=== PATIENT | female | born 1945 | race Caucasian/White ===

== ENCOUNTER 2023-07-21 11:38 | Inpatient (IN) | payer OTHER ==
[2023-07-21] MEDS ORDERED: ACETAMINOPHEN INJECTION 100 ML IVPB ONE (13:29)
[2023-07-21 13:56] LABS: BASO % 0.7 % (0-2.0); EOS % 2.1 % (0-4.5); HEMATOCRIT 29.1 % (32.4-45.2); HEMOGLOBIN 9.2 GM/dL (10.7-15.3); LYMPH % 10.1 % (8-40); MCH 28.2 pg (25.7-33.7); MCHC 31.6 g/dl (32.0-36.0); MEAN CELL VOLUME 89.4 fl (80-96); MONO % 3.1 % (3.8-10.2); PLATELET COUNT 408 10^3/uL (134-434); RBC 3.26 M/mm3 (3.60-5.2); RDW 14.8 % (11.6-15.6); WHITE BLOOD COUNT 12.5 K/mm3 (4.0-10.0)
[2023-07-21] MEDS: ACETAMINOPHEN 1000 MG/100 ML BAG IVPB ONE (14:03)
[2023-07-21 14:17] LABS: POTASSIUM 3.6 mmol/L (3.5-5.1)
[2023-07-21 14:20] LABS: BLOOD UREA NITROGEN 54.5 mg/dL (7-18); CALCIUM 9.7 mg/dL (8.5-10.1); MAGNESIUM 1.7 mg/dL (1.8-2.4)
[2023-07-21 14:22] LABS: CREATININE 4.9 mg/dL (0.55-1.3)
[2023-07-21 14:24] LABS: BILIRUBIN,TOTAL 0.3 mg/dL (0.2-1); TOT PROT 7.2 g/dl (6.4-8.2)
[2023-07-21] MEDS ORDERED: ASPIRIN 81 MG CHEWABLE TABLETS ONE (15:15)
[2023-07-21] MEDS: ASPIRIN 81 MG CHEWABLE TABLETS PO ONE (16:45)
[2023-07-21 17:22] LABS: EPI CELLS 4 /uL (0-25.1); HYALINE CASTS 1 /uL (0-3.1); URINE APPEARANCE CLEAR; URINE BACTERIA 3571 /uL (0-1359); URINE BILIRUBIN NEGATIVE (NEGATIVE); URINE COLOR YELLOW; URINE GLUCOSE (UA) 1+ (NEGATIVE); URINE KETONE NEGATIVE (NEGATIVE); URINE LEUK ESTERASE 3+ (NEGATIVE); URINE NITRITE NEGATIVE (NEGATIVE); URINE PROTEIN 2+ (NEGATIVE); URINE RBC 11 /uL (0-23.9); URINE UROBILINOGEN 0.2 mg/dL (0.2-1.0); URINE WBC 271 /uL (0-25.8)
[2023-07-21] MEDS ORDERED: NIFEdipine E.R. 30 MG TABLET PO ONE (17:45)
[2023-07-21] MEDS ORDERED: MAGNESIUM 1GM/D5W - 1 GM/100 ML IVPB IVPB ONE (17:45)
[2023-07-21] MEDS: NIFEdipine E.R. 30 MG TABLET PO SCH (18:10)
[2023-07-21] MEDS: MAGNESIUM SULF 50% (8.12 MEQ/2 ML-1 GM VIAL) IVPB ONE (18:10)
[2023-07-21] MEDS: INSULIN ASPART SLIDING SCALE (NOVOLOG) 1 VIAL SQ SCH (18:11)
[2023-07-21] MEDS ORDERED: CEFTRIAXONE 1 GM/50 ML BAG ONE (18:17)
[2023-07-21] MEDS: CEFTRIAXONE 1 GM in DEXTROSE 5%-WATER - 50 ML IVPB ONE (19:28)
[2023-07-21] MEDS ORDERED: SACUBITRIL/VALSARTAN 24 MG-26 MG TABLET ONE (21:37)
[2023-07-21] MEDS ORDERED: ATORVASTATIN CA 80 MG TABLET (FP) ONE (21:37)
[2023-07-21] MEDS ORDERED: CARVEDILOL 25 MG TABLET (FP) ONE (21:37)
[2023-07-21] MEDS ORDERED: HEPARIN NA (PORCINE) 5,000 UNITS/ML 1ML VIAL ONE (21:37)
[2023-07-21] MEDS: HEPARIN NA (PORCINE) 5,000 UNITS/ML 1ML VIAL SQ SCH (21:54)
[2023-07-21] MEDS: ATORVASTATIN CA 80 MG TABLET (FP) PO SCH (21:54)
[2023-07-21] MEDS: CARVEDILOL 25 MG TABLET (FP) PO SCH (21:54)
[2023-07-21] MEDS: SACUBITRIL/VALSARTAN 24 MG-26 MG TABLET PO SCH (21:54)
[2023-07-21] MEDS: TORSEMIDE 20 MG TABLET (FP) PO SCH (22:34)
[2023-07-21] MEDS: CALCIUM ACETATE 667 MG CAPSULE (FP) PO SCH (23:15)
[2023-07-22] MEDS ORDERED: SODIUM CHLORIDE 250 ML IV PRN (07:11)
[2023-07-22 07:12] LABS: BASO % 0.7 % (0-2.0); EOS % 5.3 % (0-4.5); HEMOGLOBIN 7.7 GM/dL (10.7-15.3); LYMPH % 11.5 % (8-40); MCH 28.5 pg (25.7-33.7); MEAN CELL VOLUME 89.1 fl (80-96); MEAN PLT VOLUME 8.1 fl (7.5-11.1); MONO % 4.6 % (3.8-10.2); NEUT % 77.9 % (42.8-82.8); PLATELET COUNT 351 10^3/uL (134-434); WHITE BLOOD COUNT 10.7 K/mm3 (4.0-10.0)
[2023-07-22 07:20] LABS: POTASSIUM 3.7 mmol/L (3.5-5.1)
[2023-07-22 07:23] LABS: BLOOD UREA NITROGEN 56.6 mg/dL (7-18); CALCIUM 8.7 mg/dL (8.5-10.1)
[2023-07-22 07:25] LABS: CREATININE 4.5 mg/dL (0.55-1.3)
[2023-07-22] MEDS: TORSEMIDE 20 MG TABLET (FP) PO SCH (07:31)
[2023-07-22] MEDS: CALCIUM ACETATE 667 MG CAPSULE (FP) PO SCH (07:31)
[2023-07-22] MEDS: ASPIRIN COATED 81 MG TABLET.EC PO SCH (09:06)
[2023-07-22] MEDS: HEPARIN NA (PORCINE) 5,000 UNITS/ML 1ML VIAL IVPUSH ONE (11:48)
[2023-07-22] MEDS: EPOETIN ALFA-EPBX 10,000 UNIT/ML VIAL SQ ONE (11:49)
[2023-07-22] MEDS ORDERED: CEFTRIAXONE 1 GM/50 ML BAG ONE (15:02)
[2023-07-22] MEDS: HEPARIN NA (PORCINE) 5,000 UNITS/ML 1ML VIAL SQ SCH (15:18)
[2023-07-22] MEDS: CEFTRIAXONE 1 GM in DEXTROSE 5%-WATER - 50 ML IVPB SCH (15:18)
[2023-07-22] MEDS: EPOETIN ALFA-EPBX 4,000 UNIT/ML VIAL SQ ONE (19:27)
[2023-07-22] MEDS ORDERED: traMADol HCL 50 MG TABLET ONE (20:51)
[2023-07-22] MEDS ORDERED: CARVEDILOL 25 MG TABLET (FP) ONE (20:56)
[2023-07-22] MEDS ORDERED: HEPARIN NA (PORCINE) 5,000 UNITS/ML 1ML VIAL ONE (20:56)
[2023-07-22] MEDS ORDERED: SACUBITRIL/VALSARTAN 24 MG-26 MG TABLET ONE (20:56)
[2023-07-22] MEDS ORDERED: ATORVASTATIN CA 80 MG TABLET (FP) ONE (20:56)
[2023-07-22] MEDS: traMADol HCL 50 MG TABLET PO PRN (21:15)
[2023-07-23 08:31] LABS: BASO % 0.6 % (0-2.0); EOS % 6.2 % (0-4.5); HEMATOCRIT 22.8 % (32.4-45.2); HEMOGLOBIN 7.2 GM/dL (10.7-15.3); LYMPH % 19.1 % (8-40); MCH 28.4 pg (25.7-33.7); MCHC 31.6 g/dl (32.0-36.0); MEAN CELL VOLUME 89.6 fl (80-96); MEAN PLT VOLUME 8.1 fl (7.5-11.1); MONO % 5.7 % (3.8-10.2); NEUT % 68.4 % (42.8-82.8); PLATELET COUNT 310 10^3/uL (134-434); RBC 2.55 M/mm3 (3.60-5.2); RDW 15.4 % (11.6-15.6); WHITE BLOOD COUNT 10.1 K/mm3 (4.0-10.0)
[2023-07-23 08:48] LABS: POTASSIUM 3.8 mmol/L (3.5-5.1)
[2023-07-23 08:53] LABS: BLOOD UREA NITROGEN 42.2 mg/dL (7-18); CALCIUM 8.9 mg/dL (8.5-10.1); MAGNESIUM 2.3 mg/dL (1.8-2.4)
[2023-07-23 08:56] LABS: CREATININE 3.4 mg/dL (0.55-1.3); PHOSPHOROUS 2.4 mg/dL (2.5-4.9)
[2023-07-23 08:58] LABS: BILIRUBIN,TOTAL 0.3 mg/dL (0.2-1); TOT PROT 6.1 g/dl (6.4-8.2)
[2023-07-23] MEDS: FLU VACCINE (FLULAVAL) PF 60 MCG/0.5 ML SYRINGE 2023-2024 IM ONE (12:12)
[2023-07-24] MEDS: EPOETIN ALFA-EPBX 10,000 UNIT/ML VIAL SQ ONE (17:29)
[2023-07-24 17:57] LABS: HEMATOCRIT 21.7 % (32.4-45.2); MCH 28.5 pg (25.7-33.7); MCHC 31.9 g/dl (32.0-36.0); MEAN CELL VOLUME 89.3 fl (80-96); MEAN PLT VOLUME 8.2 fl (7.5-11.1); PLATELET COUNT 323 10^3/uL (134-434); RBC 2.43 M/mm3 (3.60-5.2); RDW 15.5 % (11.6-15.6)
[2023-07-24 18:01] LABS: HEMOGLOBIN 6.9 GM/dL (10.7-15.3)
[2023-07-24 18:25] LABS: POTASSIUM 4.1 mmol/L (3.5-5.1)
[2023-07-24 18:27] LABS: ALBUMIN 2.8 g/dl (3.4-5.0); CALCIUM 8.7 mg/dL (8.5-10.1)
[2023-07-24 18:28] LABS: BLOOD UREA NITROGEN 47.2 mg/dL (7-18)
[2023-07-24 18:31] LABS: CREATININE 3.6 mg/dL (0.55-1.3)
[2023-07-24 18:32] LABS: BILIRUBIN,TOTAL 0.2 mg/dL (0.2-1); TOT PROT 6.1 g/dl (6.4-8.2)
[2023-07-24] MEDS ORDERED: SODIUM CHLORIDE 250 ML IV PRN (19:00)
[2023-07-25 06:47] LABS: BASO % 0.4 % (0-2.0); EOS % 5.4 % (0-4.5); HEMATOCRIT 25.7 % (32.4-45.2); HEMOGLOBIN 8.6 GM/dL (10.7-15.3); LYMPH % 19.6 % (8-40); MCH 29.3 pg (25.7-33.7); MCHC 33.6 g/dl (32.0-36.0); MEAN CELL VOLUME 87.1 fl (80-96); MEAN PLT VOLUME 7.8 fl (7.5-11.1); MONO % 6.1 % (3.8-10.2); NEUT % 68.5 % (42.8-82.8); PLATELET COUNT 296 10^3/uL (134-434); RBC 2.95 M/mm3 (3.60-5.2); RDW 15.1 % (11.6-15.6); WHITE BLOOD COUNT 10.1 K/mm3 (4.0-10.0)
[2023-07-25 07:05] LABS: POTASSIUM 3.9 mmol/L (3.5-5.1)
[2023-07-25 07:17] LABS: ALBUMIN 2.9 g/dl (3.4-5.0)
[2023-07-25 07:19] LABS: CREATININE 2.1 mg/dL (0.55-1.3)
[2023-07-25 07:21] LABS: BILIRUBIN,TOTAL 0.3 mg/dL (0.2-1); TOT PROT 6.3 g/dl (6.4-8.2)
[2023-07-25 07:32] LABS: BLOOD UREA NITROGEN 21.4 mg/dL (7-18)
[2023-07-25] MEDS: POLYETHYLENE GLYCOL (HEALTHYLAX) 3350 17 GM PACKET PO SCH (15:08)
[2023-07-25] MEDS: SENNOSIDES/DOCUSATE COMBO (SENNA PLUS) TABLET (UD) PO SCH (21:31)
[2023-07-26] MEDS ORDERED: REGADENOSON 0.4 MG/5 ML PRE-FILLED SYRINGE IVPUSH ONE (11:38)
[2023-07-26] MEDS: REGADENOSON 0.4 MG/5 ML PRE-FILLED SYRINGE IVPUSH ONE (13:15)
[2023-07-26] MEDS ORDERED: SODIUM CHLORIDE 250 ML IV PRN (14:12)
[2023-07-26 14:13] LABS: HEMATOCRIT 26.7 % (32.4-45.2); HEMOGLOBIN 8.6 GM/dL (10.7-15.3); MCH 28.3 pg (25.7-33.7); MCHC 32.2 g/dl (32.0-36.0); PLATELET COUNT 320 10^3/uL (134-434); RBC 3.04 M/mm3 (3.60-5.2); RDW 15.8 % (11.6-15.6); WHITE BLOOD COUNT 9.7 K/mm3 (4.0-10.0)
[2023-07-26 14:37] LABS: POTASSIUM 3.6 mmol/L (3.5-5.1)
[2023-07-26 14:38] LABS: ALBUMIN 2.8 g/dl (3.4-5.0); CALCIUM 8.5 mg/dL (8.5-10.1)
[2023-07-26 14:43] LABS: BILIRUBIN,TOTAL 0.2 mg/dL (0.2-1)
[2023-07-26] MEDS: EPOETIN ALFA-EPBX 10,000 UNIT/ML VIAL SQ ONE (15:28)
[2023-07-26] MEDS: BISACODYL 10 MG SUPP.RECT PR PRN (17:50)
[2023-07-28] MEDS ORDERED: SODIUM CHLORIDE 250 ML IV PRN (21:49)
[2023-07-28] MEDS: traMADol HCL 50 MG TABLET PO ONE (22:05)
[2023-07-29 07:44] LABS: BASO % 0.3 % (0-2.0); EOS % 7.2 % (0-4.5); HEMATOCRIT 25.3 % (32.4-45.2); HEMOGLOBIN 8.3 GM/dL (10.7-15.3); LYMPH % 28.4 % (8-40); MCH 28.7 pg (25.7-33.7); MCHC 32.6 g/dl (32.0-36.0); MEAN CELL VOLUME 88.1 fl (80-96); MONO % 6.4 % (3.8-10.2); NEUT % 57.7 % (42.8-82.8); PLATELET COUNT 329 10^3/uL (134-434); RBC 2.88 M/mm3 (3.60-5.2); RDW 15.2 % (11.6-15.6); WHITE BLOOD COUNT 9.3 K/mm3 (4.0-10.0)
[2023-07-29 08:00] LABS: POTASSIUM 4.2 mmol/L (3.5-5.1)
[2023-07-29 08:12] LABS: BLOOD UREA NITROGEN 46.2 mg/dL (7-18); CALCIUM 8.8 mg/dL (8.5-10.1)
[2023-07-29] MEDS ORDERED: ACETAMINOPHEN 325 MG TABLET (FP) PO PRN (08:13)
[2023-07-29 08:16] LABS: CREATININE 3.4 mg/dL (0.55-1.3)
[2023-07-29] MEDS ORDERED: INSULIN (NOVOLOG) ASPART 100 UNITS/ML 10ML VIAL ONE ×2 (11:02→16:38)
[2023-07-29] MEDS: traMADol HCL 50 MG TABLET PO PRN (23:17)
[2023-07-30 08:43] LABS: CALCIUM 9.5 mg/dL (8.5-10.1)
[2023-07-30 08:44] LABS: BLOOD UREA NITROGEN 24.5 mg/dL (7-18); MAGNESIUM 1.9 mg/dL (1.8-2.4)
[2023-07-30 08:47] LABS: CREATININE 2.1 mg/dL (0.55-1.3); PHOSPHOROUS 1.9 mg/dL (2.5-4.9)
[2023-07-30 08:48] LABS: BILIRUBIN,TOTAL 0.4 mg/dL (0.2-1); TOT PROT 6.6 g/dl (6.4-8.2)
[2023-07-30] MEDS: VITAMIN B COMP W-C 1 EA TABLET (NEPHRO-VITE) PO SCH (09:39)
[2023-07-30] MEDS ORDERED: INSULIN (NOVOLOG) ASPART 100 UNITS/ML 10ML VIAL ONE (11:11)
[2023-07-30] MEDS: NAPH,MB-DB/K PH,MBDB POWDER PACKET PO ONE (17:52)
[2023-07-30] MEDS: PNEUMOC 20-VAL CONJ-DIP CRM/PF 0.5 ML SYRINGE IM ONE (20:15)
[2023-07-31] MEDS ORDERED: INSULIN (NOVOLOG) ASPART 100 UNITS/ML 10ML VIAL ONE (11:39)
[2023-07-31] MEDS ORDERED: SODIUM CHLORIDE 250 ML IV PRN (16:11)
[2023-07-31] MEDS: EPOETIN ALFA-EPBX 10,000 UNIT/ML VIAL IVPUSH ONE (17:13)
[2023-07-31 17:52] LABS: HEMATOCRIT 25.7 % (32.4-45.2); HEMOGLOBIN 8.3 GM/dL (10.7-15.3); MCH 28.7 pg (25.7-33.7); MCHC 32.2 g/dl (32.0-36.0); MEAN PLT VOLUME 8.2 fl (7.5-11.1); PLATELET COUNT 351 10^3/uL (134-434); RBC 2.89 M/mm3 (3.60-5.2); WHITE BLOOD COUNT 9.3 K/mm3 (4.0-10.0)
[2023-08-01 06:54] LABS: POTASSIUM 3.3 mmol/L (3.5-5.1)
[2023-08-01 06:56] LABS: CALCIUM 8.4 mg/dL (8.5-10.1)
[2023-08-01 06:57] LABS: ALBUMIN 2.9 g/dl (3.4-5.0)
[2023-08-01 07:01] LABS: BILIRUBIN,TOTAL 0.3 mg/dL (0.2-1)
[2023-08-01 07:02] LABS: TOT PROT 6.1 g/dl (6.4-8.2)
[2023-08-01 08:06] LABS: BASO % 0.6 % (0-2.0); EOS % 7.3 % (0-4.5); HEMATOCRIT 29.3 % (32.4-45.2); HEMOGLOBIN 9.6 GM/dL (10.7-15.3); LYMPH % 18.3 % (8-40); MCH 29.2 pg (25.7-33.7); MCHC 32.9 g/dl (32.0-36.0); MEAN CELL VOLUME 88.6 fl (80-96); MEAN PLT VOLUME 8.5 fl (7.5-11.1); MONO % 6.7 % (3.8-10.2); NEUT % 67.1 % (42.8-82.8); PLATELET COUNT 295 10^3/uL (134-434); RBC 3.31 M/mm3 (3.60-5.2); RDW 16.5 % (11.6-15.6)
[2023-08-01] MEDS ORDERED: SODIUM CHLORIDE 250 ML IV PRN (14:42)
[2023-08-02] MEDS ORDERED: INSULIN (NOVOLOG) ASPART 100 UNITS/ML 10ML VIAL ONE (06:11)
[2023-08-02] MEDS: EPOETIN ALFA-EPBX 10,000 UNIT/ML VIAL IVPUSH ONE (10:10)
[2023-08-02] MEDS ORDERED: BISACODYL 10 MG SUPP.RECT PR PRN (19:31)
[2023-08-02] MEDS: CARVEDILOL 25 MG TABLET (FP) PO SCH (21:31)
[2023-08-02] MEDS: SACUBITRIL/VALSARTAN 24 MG-26 MG TABLET PO SCH (21:31)
[2023-08-02] MEDS: ATORVASTATIN CA 80 MG TABLET (FP) PO SCH (21:32)
[2023-08-02] MEDS: HEPARIN NA (PORCINE) 5,000 UNITS/ML 1ML VIAL SQ SCH (21:32)
[2023-08-02 21:40] VITALS: BMI 28.1
[2023-08-03] MEDS: TORSEMIDE 20 MG TABLET (FP) PO SCH (06:08)
[2023-08-03] MEDS: INSULIN ASPART SLIDING SCALE (NOVOLOG) 1 VIAL SQ SCH (06:08)
[2023-08-03] MEDS: CALCIUM ACETATE 667 MG CAPSULE (FP) PO SCH (08:41)
[2023-08-03] MEDS: VITAMIN B COMP W-C 1 EA TABLET (NEPHRO-VITE) PO SCH (09:49)
[2023-08-03] MEDS: ASPIRIN COATED 81 MG TABLET.EC PO SCH (09:49)
[2023-08-03] MEDS: NIFEdipine E.R. 30 MG TABLET PO SCH (09:50)
[2023-08-03] MEDS: POLYETHYLENE GLYCOL (HEALTHYLAX) 3350 17 GM PACKET PO SCH (09:50)
[2023-08-03] MEDS: ISOSORBIDE MONONITRATE 30 MG TAB.SR.24H (FP) PO SCH (11:59)
[2023-08-04] MEDS ORDERED: INSULIN ASPART SLIDING SCALE (NOVOLOG) 1 VIAL SQ ONE (11:05)
[2023-08-04] MEDS: INSULIN ASPART SLIDING SCALE (NOVOLOG) 1 VIAL SQ SCH (16:40)
[2023-08-05] MEDS: ACETAMINOPHEN 325 MG TABLET (FP) PO PRN (01:20)
[2023-08-05] MEDS: glipiZIDE 5 MG TABLET (FP) PO SCH (11:59)
[2023-08-05] MEDS ORDERED: SODIUM CHLORIDE 250 ML IV PRN (15:41)
[2023-08-05] MEDS: EPOETIN ALFA-EPBX 10,000 UNIT/ML VIAL SQ ONE (16:05)
[2023-08-05] MEDS: traMADol HCL 50 MG TABLET PO PRN (21:30)
[2023-08-06 09:46] VITALS: BP 125/66; PULSE 72; RESP 18; TEMP 97.6
== END 2023-08-06 10:32 | DRG 291 ==
LOC: JER 11:38 → JERBED 12:51 → J4W 07-22 21:44 → OBSVTOIN 07-25 11:00 → J6S 08-02 17:24
PROVIDERS: ADMIT Internal Medicine; ATTEND Internal Medicine
PROC: 5A1D70Z Performance of Urinary Filtration, Intermittent, Less than 6 Hours Per Day (ICD-10-PCS; principal; 2023-07-22)
PROC: 5A1D70Z Performance of Urinary Filtration, Intermittent, Less than 6 Hours Per Day (ICD-10-PCS; 2023-07-24)
PROC: 30233N1 Transfusion of Nonautologous Red Blood Cells into Peripheral Vein, Percutaneous Approach (ICD-10-PCS; 2023-07-24)
PROC: 5A1D70Z Performance of Urinary Filtration, Intermittent, Less than 6 Hours Per Day (ICD-10-PCS; 2023-07-26)
PROC: 5A1D70Z Performance of Urinary Filtration, Intermittent, Less than 6 Hours Per Day (ICD-10-PCS; 2023-07-29)
PROC: 5A1D70Z Performance of Urinary Filtration, Intermittent, Less than 6 Hours Per Day (ICD-10-PCS; 2023-07-31)
PROC: 5A1D70Z Performance of Urinary Filtration, Intermittent, Less than 6 Hours Per Day (ICD-10-PCS; 2023-08-02)
PROC: 5A1D70Z Performance of Urinary Filtration, Intermittent, Less than 6 Hours Per Day (ICD-10-PCS; 2023-08-05)
DX: I13.2 Hypertensive heart and chronic kidney disease with heart failure and with stage 5 chronic kidney disease, or end stage renal disease (principal); N18.6 End stage renal disease; N39.0 Urinary tract infection, site not specified; E11.22 Type 2 diabetes mellitus with diabetic chronic kidney disease; I50.32 Chronic diastolic (congestive) heart failure; D63.1 Anemia in chronic kidney disease; R09.02 Hypoxemia; E78.5 Hyperlipidemia, unspecified; K59.00 Constipation, unspecified; I25.5 Ischemic cardiomyopathy; D72.829 Elevated white blood cell count, unspecified; B96.4 Proteus (mirabilis) (morganii) as the cause of diseases classified elsewhere; Z99.2 Dependence on renal dialysis
CPT/HCPCS: 0241U-QW; 36415; 36430; 71045-TC-FY; 71275-TC; 78452-TC; 80048; 80053; 81003; 82962; 83735; 84100; 84484; 85025; 85027; 86704; 86803; 86850; 86900; 86901; 86922; 87086; 87186; 87340; 87517; 87635; 90677; 93005; 93010; 93017; 93306-TC; 93986; 97116-GP; 97162-GP; 99285-25; A9502; G0009; G0378; J0131; J1644; J2785; P9038; P9058; Q5106; Q9967

== ENCOUNTER 2024-01-20 13:07 | Inpatient (IN) | payer OTHER ==
[2024-01-20] MEDS ORDERED: METOCLOPRAMIDE HCL INJECTION 10 MG/2 ML VIAL ONE (14:02)
[2024-01-20] MEDS ORDERED: ACETAMINOPHEN INJECTION 100 ML IVPB ONE (14:02)
[2024-01-20] MEDS: ACETAMINOPHEN 1000 MG/100 ML BAG IVPB ONE (14:59)
[2024-01-20] MEDS: METOCLOPRAMIDE HCL INJECTION 10 MG/2 ML VIAL IVPUSH ONE (15:00)
[2024-01-20 15:07] LABS: BASO % 0.6 % (0-2.0); EOS % 2.2 % (0-4.5); HEMATOCRIT 34.7 % (32.4-45.2); HEMOGLOBIN 11.3 GM/dL (10.7-15.3); LYMPH % 17.4 % (8-40); MCH 31.4 pg (25.7-33.7); MCHC 32.5 g/dl (32.0-36.0); MEAN CELL VOLUME 96.8 fl (80-96); MONO % 4.6 % (3.8-10.2); NEUT % 75.2 % (42.8-82.8); PLATELET COUNT 224 10^3/uL (134-434); RBC 3.59 M/mm3 (3.60-5.2); RDW 16.7 % (11.6-15.6)
[2024-01-20 15:10] LABS: VENOUS BASE EXCESS -0.5 mmol/L (-2-2); VENOUS O2 SATURATION 51.2 % (70-80); VENOUS PCO2 47.4 mmHg (38-52); VENOUS PH 7.348 (7.310-7.410)
[2024-01-20 15:18] LABS: ACTIVATED PTT 38.3 SECONDS (25.2-36.5); INR 0.94 (0.83-1.09); PROTHROMBIN TIME (PATIENT) 10.8 SEC (9.7-13.0)
[2024-01-20 15:23] LABS: CHLORIDE 99 mmol/L (98-107); SODIUM 135 mmol/L (136-145)
[2024-01-20 15:24] LABS: POTASSIUM 6.4 mmol/L (3.5-5.1)
[2024-01-20 15:25] LABS: ANION GAP 9 mmol/L (4-13); BLOOD UREA NITROGEN 53.1 mg/dL (7-18); CALCIUM 9.8 mg/dL (8.5-10.1); CO2 27 mmol/L (21-32); MAGNESIUM 2.1 mg/dL (1.8-2.4)
[2024-01-20 15:26] LABS: GLUCOSE,RANDOM 102 mg/dL (74-106)
[2024-01-20 15:27] LABS: SGPT/ALT 30 U/L (13-61)
[2024-01-20 15:29] LABS: CREATININE 2.9 mg/dL (0.55-1.3); SGOT/AST 59 U/L (15-37)
[2024-01-20 15:30] LABS: BILIRUBIN,TOTAL 0.4 mg/dL (0.2-1)
[2024-01-20 15:31] LABS: ALK PHOS 121 U/L (45-117)
[2024-01-20 15:34] LABS: N-TERMINAL BNP 12511.9 pg/ml (5-450)
[2024-01-20] MEDS ORDERED: SODIUM CHLORIDE 250 ML IV PRN (15:54)
[2024-01-20 16:21] LABS: CHLORIDE 101 mmol/L (98-107); SODIUM 135 mmol/L (136-145)
[2024-01-20 16:23] LABS: POTASSIUM 6.9 mmol/L (3.5-5.1)
[2024-01-20 16:24] LABS: ALBUMIN 3.4 g/dl (3.4-5.0); ANION GAP 9 mmol/L (4-13); CALCIUM 9.3 mg/dL (8.5-10.1); CO2 25 mmol/L (21-32); GLUCOSE,RANDOM 96 mg/dL (74-106)
[2024-01-20 16:27] LABS: SGPT/ALT 31 U/L (13-61)
[2024-01-20 16:28] LABS: CREATININE 2.9 mg/dL (0.55-1.3); SGOT/AST 73 U/L (15-37)
[2024-01-20 16:29] LABS: BILIRUBIN,TOTAL 0.8 mg/dL (0.2-1); TOT PROT 6.9 g/dl (6.4-8.2)
[2024-01-20 16:30] LABS: ALK PHOS 101 U/L (45-117)
[2024-01-20 17:23] LABS: POTASSIUM 5.3 mmol/L (3.5-5.1)
[2024-01-20 17:25] LABS: ALBUMIN 3.4 g/dl (3.4-5.0); BLOOD UREA NITROGEN 53.8 mg/dL (7-18); CALCIUM 9.3 mg/dL (8.5-10.1)
[2024-01-20 17:29] LABS: CREATININE 2.8 mg/dL (0.55-1.3)
[2024-01-20 17:30] LABS: BILIRUBIN,TOTAL 0.3 mg/dL (0.2-1); TOT PROT 6.6 g/dl (6.4-8.2)
[2024-01-21] MEDS ORDERED: HEPARIN NA (PORCINE) 5,000 UNITS/ML 1ML VIAL ONE ×2 (06:14→14:36)
[2024-01-21] MEDS: HEPARIN NA (PORCINE) 5,000 UNITS/ML 1ML VIAL SQ SCH (06:30)
[2024-01-21] MEDS: TORSEMIDE 20 MG TABLET (FP) PO SCH (06:44)
[2024-01-21 07:24] LABS: BASO % 0.6 % (0-2.0); EOS % 4.3 % (0-4.5); HEMATOCRIT 34.5 % (32.4-45.2); HEMOGLOBIN 11.1 GM/dL (10.7-15.3); LYMPH % 32.5 % (8-40); MCH 31.6 pg (25.7-33.7); MCHC 32.2 g/dl (32.0-36.0); MEAN CELL VOLUME 98.2 fl (80-96); MEAN PLT VOLUME 9.8 fl (7.5-11.1); MONO % 6.4 % (3.8-10.2); NEUT % 56.2 % (42.8-82.8); PLATELET COUNT 211 10^3/uL (134-434); RBC 3.52 M/mm3 (3.60-5.2); RDW 16.1 % (11.6-15.6); WHITE BLOOD COUNT 7.3 K/mm3 (4.0-10.0)
[2024-01-21 07:35] LABS: POTASSIUM 5.1 mmol/L (3.5-5.1)
[2024-01-21 07:39] LABS: CALCIUM 10.1 mg/dL (8.5-10.1)
[2024-01-21 07:40] LABS: BLOOD UREA NITROGEN 68.9 mg/dL (7-18)
[2024-01-21 07:43] LABS: CREATININE 3.5 mg/dL (0.55-1.3)
[2024-01-21 07:45] LABS: BILIRUBIN,TOTAL 0.4 mg/dL (0.2-1); TOT PROT 7.7 g/dl (6.4-8.2)
[2024-01-21] MEDS: CARVEDILOL 25 MG TABLET (FP) PO SCH (12:50)
[2024-01-21] MEDS: SACUBITRIL/VALSARTAN 24 MG-26 MG TABLET PO SCH (12:50)
[2024-01-21] MEDS: ALLOPURINOL 100 MG TABLET (FP) PO SCH (12:50)
[2024-01-21] MEDS: ISOSORBIDE MONONITRATE 30 MG TAB.SR.24H (FP) PO SCH (12:50)
[2024-01-21] MEDS: NIFEdipine E.R. 30 MG TABLET PO SCH (12:50)
[2024-01-21] MEDS ORDERED: INSULIN ASPART SLIDING SCALE (NOVOLOG) 1 VIAL SQ ONE ×2 (14:16→18:55)
[2024-01-21] MEDS: INSULIN ASPART SLIDING SCALE (NOVOLOG) 1 VIAL SQ SCH ×2 (14:25→19:19)
[2024-01-21 21:43] VITALS: BMI 28.4
[2024-01-21] MEDS: ATORVASTATIN CA 80 MG TABLET (FP) PO SCH (22:37)
[2024-01-22 06:43] VITALS: RESP 18
[2024-01-22 09:27] LABS: HEMATOCRIT 30.7 % (32.4-45.2); HEMOGLOBIN 9.9 GM/dL (10.7-15.3); MCH 31.8 pg (25.7-33.7); MCHC 32.1 g/dl (32.0-36.0); MEAN CELL VOLUME 98.9 fl (80-96); MEAN PLT VOLUME 9.9 fl (7.5-11.1); PLATELET COUNT 194 10^3/uL (134-434); RBC 3.11 M/mm3 (3.60-5.2); RDW 16.6 % (11.6-15.6); WHITE BLOOD COUNT 7.5 K/mm3 (4.0-10.0)
[2024-01-22 09:45] LABS: POTASSIUM 4.9 mmol/L (3.5-5.1)
[2024-01-22 10:01] LABS: CALCIUM 9.3 mg/dL (8.5-10.1)
[2024-01-22 10:02] LABS: ALBUMIN 3.2 g/dl (3.4-5.0)
[2024-01-22 10:03] LABS: BLOOD UREA NITROGEN 65.8 mg/dL (7-18); MAGNESIUM 1.8 mg/dL (1.8-2.4)
[2024-01-22 10:06] LABS: CREATININE 3.1 mg/dL (0.55-1.3); PHOSPHOROUS 5.2 mg/dL (2.5-4.9)
[2024-01-22 10:07] LABS: BILIRUBIN,TOTAL 0.5 mg/dL (0.2-1); TOT PROT 6.3 g/dl (6.4-8.2)
[2024-01-22] MEDS: SODIUM ZIRCONIUM CYCLOSILICATE (LOKELMA) 5 GM PACKET PO SCH (14:34)
[2024-01-22 19:54] VITALS: BP 106/50; PULSE 70; TEMP 98.1
== END 2024-01-22 21:02 | DRG 204 ==
LOC: JER 13:07 → JERBED 16:57 → J4W 01-21 19:59
PROVIDERS: ADMIT Internal Medicine; ATTEND Internal Medicine
PROC: 5A1D70Z Performance of Urinary Filtration, Intermittent, Less than 6 Hours Per Day (ICD-10-PCS; principal; 2024-01-21)
DX: R06.02 Shortness of breath (principal); N18.6 End stage renal disease; I13.2 Hypertensive heart and chronic kidney disease with heart failure and with stage 5 chronic kidney disease, or end stage renal disease; R42 Dizziness and giddiness; Z99.2 Dependence on renal dialysis; E11.22 Type 2 diabetes mellitus with diabetic chronic kidney disease; I50.9 Heart failure, unspecified
CPT/HCPCS: 0241U-QW; 36415; 70450-TC; 70551-TC; 71045-TC-FY; 80053; 82550; 82553; 82803; 82962; 83036; 83735; 83880; 84100; 84484; 85025; 85027; 85610; 85730; 86705; 86803; 86850; 86900; 86901; 87340; 93005; 93010; 97162-GP; 99285-25; J0131; J1644